=== PATIENT | female | born 1950 | race Caucasian/White ===

== ENCOUNTER 2017-02-08 08:47 | Inpatient (IN) | payer BC, OTHER ==
[2017-01-22 14:45] VITALS: Ht 160 cm; Wt 86.8 kg
--- NOTE | 2017-01-22 15:08 | PAT Medication Instructions ---
Service Date Jan 22, 2017. Current Home Medication List Aspirin (Aspirin Ec), 81 MG PO QAM Calcium (Calcium), 1 TAB PO QPM Carboxymethylcellulose-Glyceri (Refresh Optive Advanced S), 1 DOSE OPB QID Carvedilol (Coreg), 12.5 MG PO BID Losartan Potassium (Losartan Potassium), 1 TAB PO QAM Magnesium Oxide (Magnesium), 250 MG PO HS Multiple Vitamins W/ Minerals (One Daily For Women), 1 TAB PO QAM Medication Instructions For Your Scheduled Surgery - Check with surgeon for instructions: Aspirin (Aspirin Ec), 81 MG PO QAM - Hold the following medications the morning of surgery: Losartan Potassium (Losartan Potassium), 1 TAB PO QAM Multiple Vitamins W/ Minerals (One Daily For Women), 1 TAB PO QAM - Take the following medications the morning of surgery with a sip of water: Carvedilol (Coreg), 12.5 MG PO BID Carboxymethylcellulose-Glyceri (Refresh Optive Advanced S), 1 DOSE OPB QID - Take the following medications as scheduled the night before surgery: Magnesium Oxide (Magnesium), 250 MG PO HS Carvedilol (Coreg), 12.5 MG PO BID Calcium (Calcium), 1 TAB PO QPM Carboxymethylcellulose-Glyceri (Refresh Optive Advanced S), 1 DOSE OPB QID If you have any questions please call us at [phone] or [phone] or [phone]
--- NOTE | 2017-01-22 15:53 | DIAGNOSTIC IMAGING REPORT ---
CHEST PREADMISSION(PA/LAT) HISTORY: 66 years-old Female preadmission exam. Patient is asymptomatic. COMPARISON: Chest radiograph 11/23/2015 TECHNIQUE: Frontal and lateral views of the chest FINDINGS: The cardiomediastinal and hilar silhouettes are within normal limits. There is no pneumothorax or pleural effusion. There is a focal 11 x 6 mm opacity projected over the right upper lobe. Otherwise, lung ríos appear clear. There is fusion hardware of the cervical and lumbar spine. Upper abdominal structures are unremarkable. IMPRESSION: Focal 11 x 6 mm opacity in the apical region of the right upper lobe suggest pulmonary nodule, focal airspace disease or parenchymal scarring. This could be further evaluated with CT of the chest. The above report was generated using voice recognition software. It may contain grammatical, syntax or spelling errors. Electronically signed by: Juan Jose Kauffman M.D. 01/22/2017 3:52 PM Dictated Date/Time: 01/22/2017 3:50 PM
[2017-01-22 15:58] LABS: URINE APPEARANCE CLEAR (CLEAR); URINE BILIRUBIN NEG (NEG); URINE COLOR YELLOW; URINE NITRITE NEG (NEG); URINE SPECIFIC GRAVITY 1.022 (1.000-1.030); UROBILINOGEN NEG (NEG)
[2017-01-22 15:58] LABS: BASO % 0.4 %; BASO ABS # 0.03 K/uL (0-0.2); COMPLETE YES; HEMATOCRIT 37.2 % (37-47); IG% 0.3 %; LYMPH % 16.7 %; LYMPH ABS # 1.17 K/uL (1.2-3.4); MEAN CELL VOLUME 86.1 fL (80-100); MEAN CORPUSCULAR HEMOGLOBIN 28.7 pg (25-34); MEAN CORPUSCULAR HGB CONC 33.3 g/dl (32-36); MEAN PLATELET VOLUME 9.2 fL (7.4-10.4); MONO % 6.4 %; NEUT % 70.2 %; PLATELET COUNT 254 K/uL (130-400); RED BLOOD COUNT 4.32 M/uL (4.2-5.4); WHITE BLOOD COUNT 6.99 K/uL (4.8-10.8)
[2017-01-22 16:03] LABS: MANUAL MICROSCOPIC REQUIRED? NO; REVIEW REQ? NO
[2017-01-22 16:05] LABS: BUN/CREATININE RATIO 19.3 (10-20); CALCIUM 9.3 mg/dl (8.5-10.1); CREATININE 0.76 mg/dl (0.60-1.20); POTASSIUM 4.4 mmol/L (3.5-5.1)
[2017-01-22 16:09] LABS: PROTHROMBIN TIME (PATIENT) 10.4 SECONDS (9.0-12.0)
[2017-01-23 05:48] LABS: ESTIMATED AVERAGE GLUCOSE 114 mg/dl; HA1C FLAG Normal (Normal)
--- NOTE | 2017-02-07 15:43 | HISTORY & PHYSICAL EXAMINATION ---
DATE OF ADMISSION: 02/08/2017 CHIEF COMPLAINT: Right knee pain. HISTORY OF PRESENT ILLNESS: The patient is a 66-year-old female with known osteoarthritis about her right knee. She had a previous corticosteroid injection with minimal relief. She takes Advil p.r.n. She continues to have pain and disability with activities of daily living and now desires to proceed with right total knee arthroplasty. PAST MEDICAL HISTORY: Hypertension, osteoarthritis, and obesity. PAST SURGICAL HISTORY: Low back surgery, neck surgery, hip replacement, hysterectomy, and shoulder surgery. MEDICATIONS: Losartan 50 mg daily, Coreg 12.5 mg 2 times daily, magnesium daily, aspirin 81 mg daily, calcium plus D daily, and multivitamin daily. ALLERGIES: LATEX, WHICH CAUSES A RASH. SOCIAL HISTORY AND REVIEW OF SYSTEMS: Noncontributory. PHYSICAL EXAMINATION: GENERAL: Well-nourished and well-developed elderly obese female, who appears her stated age. HEENT: Normocephalic and atraumatic. Extraocular movements intact. Oropharynx is pink and moist. NECK: Supple without adenopathy. LUNGS: Clear to auscultation bilaterally. HEART: Regular rate and rhythm. ABDOMEN: Soft, nontender, nondistended, and obese. EXTREMITIES: The upper extremities are within normal limits. The right knee has a varus alignment. Her range of motion is from 0-110 degrees. She has mild crepitus with range of motion. X-RAYS: X-rays were reviewed. She has a varus aligned knee. She has [id number] arthritis of the medial compartment with complete loss of the joint space. She has medial osteophytes. She has moderate degenerative change about the patellofemoral joint with osteophytes as well. ASSESSMENT: Right knee degenerative joint disease. PLAN: Risks versus benefits were discussed. Consent was obtained. The patient's primary care physician is Dr. Jac Kim from [facility]. We will proceed with right total knee arthroplasty upon preop workup and medical clearance.
[~2017-02-08] VITALS: Ht 160 cm; Wt 86.8 kg
[2017-02-08] MEDS: TRANEXAMIC ACID INJ 1,000 MG in SODIUM CHLORIDE 0.9% 100ML 100 ML IV SCH ×2 (06:30→11:22)
--- NOTE | 2017-02-08 08:21 | History & Physical Bridge Note ---
H&P Re-Evaluation Bridge Note: I have examined the patient, reviewed the History & Physical and in the interval since the performance of the History & Physical I have noted the following changes of clinical significance: No changes noted
[~2017-02-08 08:47] MED LIST: ACETAMINOPHEN 500 MG TAB PO SCH; ASPI81TA28 PO; BUPIVACAINE 0.5 % 5 MG/1 ML PF 10ML VIAL ONE; BUPIVACAINE/EPINEPHRINE 0.25% 10 ML VIAL ONE; CALC600T37 PO; CARV12.5 PO; CEFAZOLIN 2000 MG/60 ML D5W 60 ML IV SCH; CZR50 PO; CeleBREX 200 MG CAP PO SCH; DEXAMETHASONE 4 MG TAB PO SCH; DEXAMETHASONE SOD INJ 4 MG/ML VIAL ONE; FAMOTIDINE 20 MG TAB PO SCH; GABAPENTIN 300 MG CAP PO SCH; LACTATED RINGER'S 1000ML 1,000 ML IV SCH; LACTATED RINGER'S 1000ML 500 ML IV ONE; LACTATED RINGER'S 1000ML IV SCH; MAGN1CAP4 PO; METOCLOPRAMIDE HCL 10 MG TAB PO SCH; MULT1TAB22 PO; ROPIVACAINE 5MG/ML 30 ML 150 MG, BUPIVACAINE/EPINEPHR 0.5% MPF 30 ML, KETOROLAC TROMETH... INFIL SCH; [UNRECOGNIZED DRUG - CODE] OPB
[2017-02-08] MEDS ORDERED: MIDAZOLAM HCL 1 MG/ML 2ML VIAL ONE ×2 (09:42)
[2017-02-08] MEDS ORDERED: FENTANYL CITRATE INJ 50 MCG/1 ML 2 ML VIAL ONE (09:42)
[2017-02-08 09:55] VITALS: BP 167/77; PULSE 64; TEMP 36.1; O2SAT 96
[2017-02-08] MEDS ORDERED: POVIDONE-IODINE OP SOLN 30 ML BTL ONE (11:18)
[2017-02-08] MEDS ORDERED: ORTHO JOINT ANESTHETIC ONE (11:18)
[2017-02-08] MEDS ORDERED: BACITRACIN 50000 UNIT VIAL ONE (11:18)
[2017-02-08] MEDS ORDERED: LIDOCAINE HCL 2% 2 ML VIAL (20MG/ML) ONE (12:13)
[2017-02-08] MEDS ORDERED: PROPOFOL IV EMULSION 10 MG/ML 20 ML VIAL IV ONE (12:13)
[2017-02-08] MEDS ORDERED: PROMETHAZINE HCL INJ 6.25 MG in SODIUM CHLORIDE 0.9% 50ML 50 ML IV PRN (13:30)
[2017-02-08] MEDS ORDERED: FENTANYL CITRATE INJ 50 MCG/1 ML 2 ML VIAL IV PRN (13:30)
[2017-02-08] MEDS ORDERED: ATROPINE SULFATE 0.1 MG/ML 5ML SYR IV PRN (13:30)
[2017-02-08] MEDS ORDERED: ONDANSETRON INJ 2 MG/ML 2 ML VIAL IV PRN ×2 (13:30→13:45)
[2017-02-08] MEDS ORDERED: EpHEDrine SULFATE INJ 50 MG/ML AMP IV PRN (13:30)
--- NOTE | 2017-02-08 13:31 | [facility] Post Operative Brief Note ---
Immediate Operative Summary Operative Date Feb 08, 2017. Pre-Operative Diagnosis Right Knee Degenerative Joint Disease Post-Operative Diagnosis Right Knee Degenerative Joint Disease Procedure(s) Performed Right Total Knee Arthroplasty Surgeon Dr. Simone Tavera Automotive Heavy Mechanic Surgeon(s) Deandre Thomas PA-C Estimated Blood Loss 10ml Findings Severe OA with mcl laxity Specimens A. Right Knee Bone and Tissue Complication(s) None Disposition Recovery Room / PACU
[2017-02-08] MEDS ORDERED: MAGNESIUM HYDROXIDE SUSP 30 ML UDC PO PRN (13:45)
[2017-02-08] MEDS ORDERED: ZOLPIDEM TARTRATE 5 MG TAB PO PRN (13:45)
[2017-02-08] MEDS ORDERED: ALUMINUM/MAGNESIUM/SIMETH (MAALOX MAX) 30 ML UDC PO PRN (13:45)
[2017-02-08] MEDS ORDERED: MoRPHine SULFATE 2 MG/ML CARP IV PRN (13:45)
[2017-02-08] MEDS ORDERED: BISACODYL 10 MG SUPP PR PRN (13:45)
[2017-02-08] MEDS ORDERED: SOD PHOSPHATE/SOD BIPHOSPHATE ENEMA 132 ML BTL PR PRN (13:45)
[2017-02-08] MEDS ORDERED: METOCLOPRAMIDE HCL INJ 5 MG/ML 2 ML VIAL IV PRN (13:45)
--- NOTE | 2017-02-08 13:46 | OPERATIVE REPORT ---
DATE OF OPERATION: 02/08/2017 PREOPERATIVE DIAGNOSIS: Osteoarthritis right knee. POSTOPERATIVE DIAGNOSIS: Osteoarthritis right knee. PROCEDURE: Right total knee arthroplasty. SURGEON: Dr. Tavera. TRADE MANAGER: Deandre Thomas PA-C ANESTHESIA: Spinal COMPLICATIONS: None. OPERATION AND FINDINGS: Following induction of spinal anesthesia, the patient's right leg was prepped and draped in the usual sterile manner. Limb was exsanguinated with an Esmarch bandage and tourniquet was inflated to 350 mmHg. A longitudinal incision was made anteriorly. Subcutaneous tissue was sharply dissected.? Electrocautery was used for hemostasis. Prepatellar bursa was incised and median parapatellar incision was performed. Patella was everted and the knee was flexed. Fat pad was removed to aid in visualization and the anterior and posterior cruciate ligaments were removed. The medial face of the tibia was cleared of soft tissue first with a Bovie and a Truong elevator. This tissue was retracted posteriorly using a blunt Hohmann. A Valles retractor was used to expose the synovium above on the anterior aspect of the femur and this was removed down to bone. The PSI guide was placed on the distal femur and two pins were placed anteriorly and kept in position and two additional pins were placed distally and removed. The distal femoral cutting block was placed in position and the distal femoral cut was used in the +0 setting. Next, the cutting block was removed and the femoral size 4 block was placed in the distal end of the femur. Care was taken to ensure appropriate external rotation and feeler gauge was used to ensure no notching would occur. The femoral block was centered on the distal femur and in the medial and lateral direction and was fixed using two bone screws. The gold pins were then removed. ?The oscillating saw was used to create the bone cuts and the distal femoral cutting block was removed and the reciprocating saw was used to further trim the femoral cuts as well as a deep in the area for the trochlear groove. Next, posterior condyle remnants were removed. Following this, a meniscal clamp and knife were utilized to remove the anterior portion of both medial and lateral meniscus. ?The proximal tibia PSI guide was placed into position and the proximal tibial cutting guide was screwed into position. The extra medullary alignment guide was utilized to ensure appropriate alignment.? The proximal tibia was cut and the proximal tibial cutting block was removed and this bone fragment was removed. The appropriate guide was used to perform the notch cut on the distal femur and a lamina garage laborer and a cochlear knife were utilized to finish both medial and lateral meniscectomies to remove any remnants of the posterior or anterior cruciate ligaments. Following this, the distal femoral component was impacted into position and blunt Carlyle was used to sublux the tibia anteriorly. The proximal tibia was sized and a tibial size 3 tibial tray was chosen as the size to be used. This was put into position and appropriate external rotation and a double check with extramedullary alignment guide was performed.? The canal for the tibial stem was prepared first with a 17 mm drill and then the punch and a mallet and the trial tibial poly was placed. A patella size 36 was chosen the size to be used. It was brought to extension and the patella was prepared with the patellar reamer. A tibial poly 16 stabilized component was chosen the size to be used. ?The trial component was placed and knee was taken through a full range of motion and there was found to be no lateral subluxation of the tibia. No lateral release was required. The trials were all removed. The final components were obtained and assembled. Cement was mixed. The knee was thoroughly irrigated and the ortho mix was injected about the knee joint. ?The final components were cemented into position. ?After thoroughly suctioning and drying the bone ends, all excess cement was removed. ?The knee was held in extension while the cement hardened. ?The wound was irrigated and closed over a Hemovac drain. #1 Vicryl was used to close the extensor mechanism. ?Subcutaneous tissues closed using 0 Dexon. Skin was closed with ginger. Sterile dressing of Adaptic, 4 x 4's, sterile Webril, and Darnell was applied. ?The patient tolerated the procedure well. Due to the complex nature of the procedure, the entire surgery was performed with the operational assistance of Deandre Thomas PA-C. The perinatal breastfeeding assistant, under direct supervision, was involved in the actual performance of all aspects of the surgical procedure including hemostasis, tissue retraction and incision, instrument management, patient positioning, and wound closure. ADDENDUM: The patient's medial collateral ligament was largely incompetent and so a stabilized tibial poly was placed with an extended tibial stem and additional pegs on the femur. I attest to the content of the Intraoperative Record and any orders documented therein. Any exception s are noted below.
--- NOTE | 2017-02-08 14:14 | DIAGNOSTIC IMAGING REPORT ---
RIGHT KNEE 1 OR 2 VIEWS ROUTINE HISTORY: 66 years-old Female status post right knee arthroplasty COMPARISON: None available TECHNIQUE: Portable AP and crosstable lateral views of the right knee FINDINGS: AP projection is slightly rotated. There is been recent total knee arthroplasty with patellar resurfacing. Hardware is in satisfactory alignment without evidence of periprosthetic fracture. Midline skin ginger are noted. There is expected postsurgical swelling and deep tissue air about the knee with surgical drain in place. No retained radiopaque foreign body identified. IMPRESSION: Status post right knee total joint arthroplasty and patellar resurfacing without complication identified. The above report was generated using voice recognition software. It may contain grammatical, syntax or spelling errors. Electronically signed by: Juan Jose Kauffman M.D. 02/08/2017 2:13 PM Dictated Date/Time: 02/08/2017 2:11 PM
[2017-02-08] MEDS ORDERED: MoRPHine SULFATE 10 MG/ML CARP/VIAL IV PRN (14:15)
--- NOTE | 2017-02-08 14:55 | Anesthesiology Progress Note ---
Anesthesia Post Op Note Date & Time Feb 08, 2017 at 14:54 Vital Signs Pain Intensity: 0 Vital Signs Past 12 Hours Date Time Temp Pulse Resp B/P (MAP) Pulse Ox O2 Delivery O2 Flow Rate FiO2 02/08/17 14:50 60 16 143/61 98 Nasal Cannula 2 02/08/17 14:40 37.4 62 14 126/63 98 Nasal Cannula 2 02/08/17 14:30 59 14 138/69 98 Nasal Cannula 2 02/08/17 14:20 71 14 145/67 98 Nasal Cannula 2 02/08/17 14:10 56 16 143/81 98 Nasal Cannula 2 02/08/17 14:00 56 14 143/58 100 Mask 10 02/08/17 13:56 37.3 64 12 145/69 100 Mask 10 02/08/17 09:55 36.1 64 18 167/77 96 Room Air Notes Mental Status: alert / awake / arousable, participated in evaluation Pt Amnestic to Procedure: Yes Nausea / Vomiting: adequately controlled Pain: adequately controlled Airway Patency, RR, SpO2: stable & adequate BP & HR: stable & adequate Hydration State: stable & adequate Neuraxial Anesthesia: was administered, sensory block is resolving Anesthetic Complications: no major complications apparent
[2017-02-08 15:40] VITALS: BP 132/76; PULSE 65; TEMP 36.9; O2SAT 98
[2017-02-08 16:10] VITALS: BP 154/82; PULSE 60; TEMP 36.5; O2SAT 98
[2017-02-08] MEDS: D5W AND 1/2NSS + 20MEQ KCL 1,000 ML IV SCH (16:26)
[2017-02-08 16:40] VITALS: BP 112/65; PULSE 62; TEMP 36.9; O2SAT 99
[2017-02-08] MEDS: KETOROLAC TROMETHAMINE 30 MG/ML VIAL IV. SCH ×2 (17:29→23:44)
[2017-02-08] MEDS: FERROUS GLUCONATE 324 MG TAB PO SCH (17:29)
[2017-02-08 18:47] VITALS: BP 147/80; PULSE 63; TEMP 36.6; O2SAT 98
[2017-02-08] MEDS ORDERED: TRANEXAMIC ACID INJ 1,000 MG in SODIUM CHLORIDE 0.9% 100ML 100 ML IV SCH (20:00)
[2017-02-08] MEDS: CEFAZOLIN IV 2,000 MG in DEXTROSE 5% 50ML 50 ML IV SCH (20:39)
[2017-02-08] MEDS: DOCUSATE SODIUM 100 MG CAP PO SCH (20:43)
[2017-02-08] MEDS: ASPIRIN 325 MG ECTAB PO SCH (20:43)
[2017-02-08] MEDS: SENNA 8.6 MG TAB PO SCH (20:43)
[2017-02-08 22:57] VITALS: BP 144/70; PULSE 63; TEMP 36.7; O2SAT 96
[2017-02-08] MEDS: MoRPHine SULFATE 4 MG/ML 1 ML CARP\\VIAL IV PRN (23:43)
[2017-02-09 02:28] VITALS: BP 148/63; PULSE 61; TEMP 36.6; O2SAT 95
[2017-02-09] MEDS: D5W AND 1/2NSS + 20MEQ KCL 1,000 ML IV SCH ×2 (03:02→11:53)
[2017-02-09] MEDS: CEFAZOLIN IV 2,000 MG in DEXTROSE 5% 50ML 50 ML IV SCH (03:54)
[2017-02-09] MEDS: OXYCODONE HCL IR 5 MG TAB (IMMEDIATE RELEASE) PO PRN ×4 (04:01→22:12)
[2017-02-09] MEDS: KETOROLAC TROMETHAMINE 30 MG/ML VIAL IV. SCH ×2 (05:51→11:54)
[2017-02-09 05:52] LABS: HEMATOCRIT 34.6 % (37-47); MEAN CELL VOLUME 86.1 fL (80-100); MEAN CORPUSCULAR HEMOGLOBIN 28.4 pg (25-34); MEAN CORPUSCULAR HGB CONC 32.9 g/dl (32-36); MEAN PLATELET VOLUME 9.6 fL (7.4-10.4); PLATELET COUNT 193 K/uL (130-400); RED BLOOD COUNT 4.02 M/uL (4.2-5.4)
[2017-02-09 08:00] VITALS: BP 148/82; PULSE 58; TEMP 36.6; O2SAT 97
--- NOTE | 2017-02-09 08:07 | Anesthesiology Progress Note ---
Anesthesia Post Op Note Date & Time Feb 09, 2017 at 08:07 Vital Signs Vital Signs Past 12 Hours Date Time Temp Pulse Resp B/P (MAP) Pulse Ox O2 Delivery O2 Flow Rate FiO2 02/09/17 02:28 36.6 61 16 148/63 (91) 95 Room Air 02/08/17 23:39 Room Air 02/08/17 22:57 36.7 63 16 144/70 (94) 96 Room Air Notes Mental Status: alert / awake / arousable, participated in evaluation Pt Amnestic to Procedure: Yes Nausea / Vomiting: adequately controlled Pain: adequately controlled Airway Patency, RR, SpO2: stable & adequate BP & HR: stable & adequate Hydration State: stable & adequate Neuraxial Anesthesia: was administered, sensory block resolved Anesthetic Complications: no major complications apparent
--- NOTE | 2017-02-09 08:16 | Orthopedic Progress Note ---
Orthopedic Progress Note Date of Service Feb 09, 2017. Subjective Post OP Day: 1 Reports: feeling well, Denies: chest pain, SOB, nausea / vomiting, light headedness, calf pain Objective calves soft nontender, N/V intact, hip located, dressing C/D/I, A&O x3, toes mobile, hemovac drainage (230/110CC PER SHFT) Date Time Temp Pulse Resp B/P (MAP) Pulse Ox O2 Delivery O2 Flow Rate FiO2 02/09/17 08:00 36.6 58 16 148/82 (104) 97 Room Air 02/09/17 02:28 36.6 61 16 148/63 (91) 95 Room Air 02/08/17 23:39 Room Air 02/08/17 22:57 36.7 63 16 144/70 (94) 96 Room Air 02/08/17 18:47 36.6 63 18 147/80 (102) 98 Room Air 02/08/17 16:40 36.9 62 18 112/65 (81) 99 Nasal Cannula 2.0 02/08/17 16:10 36.5 60 16 154/82 (106) 98 Nasal Cannula 2.0 02/08/17 15:40 Nasal Cannula 2.0 02/08/17 15:40 Nasal Cannula 2.0 02/08/17 15:40 36.9 65 16 132/76 (94) 98 Nasal Cannula 2.0 02/08/17 15:30 37.4 62 14 130/60 96 Nasal Cannula 2 02/08/17 15:20 60 18 139/57 96 Nasal Cannula 2 02/08/17 15:10 37.3 68 18 123/66 98 Nasal Cannula 2 02/08/17 15:00 62 14 132/64 97 Nasal Cannula 2 02/08/17 14:50 60 16 143/61 98 Nasal Cannula 2 02/08/17 14:40 37.4 62 14 126/63 98 Nasal Cannula 2 02/08/17 14:30 59 14 138/69 98 Nasal Cannula 2 02/08/17 14:20 71 14 145/67 98 Nasal Cannula 2 02/08/17 14:10 56 16 143/81 98 Nasal Cannula 2 02/08/17 14:00 56 14 143/58 100 Mask 10 02/08/17 13:56 37.3 64 12 145/69 100 Mask 10 02/08/17 09:55 36.1 64 18 167/77 96 Room Air Laboratory Results 24 Hours: Test 02/09/17 05:18 Hematocrit 34.6 % Hemoglobin 11.4 g/dL Assessment & Plan Assessment: POD#1 SP RIGHT TKA Inhouse Planning Pain Management: PO Tylenol, Oxy IR DVT Prophylaxis: TEDs, SCDs, ASA Discharge Planning Discharge Planning: snf facility (REQUESTING REFERRAL TO [facility]. WILL REQUIRE 3 DAY STAY.)
[2017-02-09] MEDS: DOCUSATE SODIUM 100 MG CAP PO SCH ×2 (08:34→21:09)
[2017-02-09] MEDS: FERROUS GLUCONATE 324 MG TAB PO SCH ×3 (08:34→17:09)
[2017-02-09] MEDS: ASPIRIN 325 MG ECTAB PO SCH ×2 (08:34→21:09)
[2017-02-09] MEDS: MULTIVITAMIN TAB PO SCH (08:34)
[2017-02-09] MEDS: PANTOprazole SOD 40 MG TAB PO SCH (08:35)
[2017-02-09 08:56] VITALS: O2SAT 97
[2017-02-09 11:34] VITALS: BP 140/72; PULSE 61; TEMP 36.7; O2SAT 100
[2017-02-09 13:09] LABS: BUN/CREATININE RATIO 26.6 (10-20); CALCIUM 8.7 mg/dl (8.5-10.1); CREATININE 0.74 mg/dl (0.60-1.20); POTASSIUM 4.2 mmol/L (3.5-5.1)
[2017-02-09 15:59] VITALS: BP 136/66; PULSE 64; TEMP 37.3; O2SAT 98
[2017-02-09] MEDS: SENNA 8.6 MG TAB PO SCH (21:10)
[2017-02-09 23:24] VITALS: BP 166/74; PULSE 60; TEMP 36.8; O2SAT 98
[2017-02-09] MEDS: MoRPHine SULFATE 4 MG/ML 1 ML CARP\\VIAL IV PRN (23:39)
[2017-02-10] MEDS: OXYCODONE HCL IR 5 MG TAB (IMMEDIATE RELEASE) PO PRN ×3 (02:27→12:22)
[2017-02-10 05:31] VITALS: BP 149/70
[2017-02-10] MEDS: MoRPHine SULFATE 4 MG/ML 1 ML CARP\\VIAL IV PRN (05:37)
--- NOTE | 2017-02-10 06:19 | Discharge Instructions ---
Discharge Instructions Date of Service Feb 10, 2017. Admission Reason for Admission: Right Knee Osteoarthritis Discharge Discharge Diagnosis / Problem: Right total knee replacement Discharge Goals Goal(s): Decrease discomfort, Improve function, Increase independence Activity Recommendations Activity Level: Up [place] Therapies: Physical Therapy, Weight Bearing Status Weightbearing Status: Right weightbearing (as tolerated) . Additional Information Patient informed of condition: Yes Advance Directives: No DNR: No Level of Care: Skilled Communicable Disease: No Prognosis: Stable Adame Catheter: No Instructions / Follow-Up Instructions / Follow-Up ACTIVITY RECOMMENDATIONS: SELF CARE INSTRUCTIONS AFTER TOTAL KNEE REPLACEMENT A. You may need to continue a physical therapy program after discharge from the hospital. There are several options available to you. Your doctor will assist you in selecting the best one for you. 1. An out-patient facility 2 to 3 times a week for therapy or home therapy. 2. Continue working on all exercises taught to you in the hospital. Your goals should be to increase bending of your knee to 90 degrees and beyond and to fully straighten your knee. B. You may progress at your own pace from walking with a walker or crutches to a cane; then to no assistive devices. C. Make walking a part of your daily routine. Be up as much as comfortable with rest periods throughout the day. Rest with leg elevation is very important. Use the ice wrap frequently for the first 3-4 weeks. D. There are no restrictions on activities. You may ride in a car, shop, participate in parliamentary librarian and all social activities. E. Wear the long elastic stockings (FILI hose) 20 hours a day for 2 weeks after surgery. They can be removed several times a day for laundering and for a bath. F. You may shower, no tub baths until cleared by your doctor. SPECIAL CARE INSTRUCTIONS: VERY IMPORTANT TO READ AND REVIEW A. There are a few signs you need to watch for after you are home. Call [facility] if you notice any of the followin. Increased severe knee pain. Some pain is expected especially when you exercise. 2. Increased swelling in your leg or knee; pain or swelling of the calf muscle in either lower leg. 3. Any fluid drainage from the incision. 4. Shortness of breath or chest pain. B. Please call [facility] at if you have any concerns or questions about your operation or recovery. The doctor or his nurse will return your call promptly. C. You must take antibiotics before dental work, bladder, bowel or other surgery. Your doctor will provide you with a permanent care to carry describing this precaution. IMPORTANT: * REMEMBER TO TAKE ASPIRIN, 81 MG, TWICE DAILY FOR 4 WEEKS UNLESS OTHERWISE DIRECTED. THIS IS YOUR BLOOD THINNER. * HIGH RISK PATIENTS MAY BE PRESCRIBED A STRONGER BLOOD THINNER. THIS WILL BE PROVIDED AT DISCHARGE. * CALL IF INCREASED PAIN, REDNESS, DRAINAGE OR FEVER GREATER THAT 101. * WEAR FILI HOSE 20 HOURS PER DAY FOR 2 WEEKS. * YOU MAY HAVE A LARGE BAND-AID LIKE DRESSING (SILVERON). THIS WILL REMAIN ON YOUR INCISION FOR 7 DAYS, THEN CAN BE REMOVED. IF INCISION IS LEAKING THROUGH DRESSING, CALL THE OFFICE . FOLLOW UP VISIT: If appointment is not already scheduled: Please call [facility] to make a follow-up appointment for 2 weeks after your surgery at . Current Hospital Diet Patient's current hospital diet: Regular Diet Discharge Diet Recommended Diet: Regular Diet Procedures Procedures Performed: Right Total Knee Arthroplasty Pending Studies Studies pending at discharge: no Laboratory Results Hemoglobin A1c Test 01/22/17 15:15 Range/Units Estimated Average Glucose 114 mg/dl Hemoglobin A1c 5.6 4.5-5.6 % Medical Emergencies . Who to Call and When: Medical Emergencies: If at any time you feel your situation is an emergency, please call 911 immediately. . Non-Emergent Contact Non-Emergency issues call your: Primary Care Provider . . "Provider Documentation" section prepared by Shaquille Alfaro. . Core Measure Problem Core Measures: None [place] Drug Monitoring Program Search Results: patient reviewed within database, no issues identified
[2017-02-10] MEDS ORDERED: OXYSR/10 PO (06:22)
[2017-02-10] MEDS ORDERED: RXC5 PO (06:22)
[2017-02-10] MEDS ORDERED: ONDA8TAB6 PO (06:22)
[2017-02-10] MEDS ORDERED: ASPEC325 PO (06:22)
[2017-02-10] MEDS ORDERED: CLC100 PO (06:22)
[2017-02-10 06:24] VITALS: BP 154/74; PULSE 57; TEMP 36.6; O2SAT 96
--- NOTE | 2017-02-10 06:26 | Orthopedic Progress Note ---
Orthopedic Progress Note Date of Service Feb 10, 2017. Subjective Post OP Day: 2 Reports: feeling well, pain controlled w PO medications, Denies: complaints, chest pain, SOB, nausea / vomiting, light headedness, calf pain Objective calves soft nontender, N/V intact, capillary refill less than 2 sec., incision C /D/I, A&O x3, toes mobile Date Time Temp Pulse Resp B/P (MAP) Pulse Ox O2 Delivery O2 Flow Rate FiO2 02/10/17 05:31 149/70 (96) 02/09/17 23:45 Room Air 02/09/17 23:24 36.8 60 18 166/74 (104) 98 Room Air 02/09/17 15:59 37.3 64 18 136/66 (89) 98 Room Air 02/09/17 15:50 Room Air 02/09/17 11:34 36.7 61 20 140/72 (94) 100 Room Air 02/09/17 08:56 97 Room Air 02/09/17 08:30 Room Air 02/09/17 08:00 36.6 58 16 148/82 (104) 97 Room Air Assessment & Plan Assessment: POD#2 SP RIGHT TKA Plan: ASA bid plan for transfer to [facility] later today after PT Discharge Planning Discharge Planning: snf facility DVT Prophylaxis: TEDs, SCDs, ASA Therapy: Physical Therapy
[2017-02-10] MEDS: PANTOprazole SOD 40 MG TAB PO SCH (07:57)
[2017-02-10] MEDS: MULTIVITAMIN TAB PO SCH (07:57)
[2017-02-10] MEDS: FERROUS GLUCONATE 324 MG TAB PO SCH (07:58)
[2017-02-10] MEDS: DOCUSATE SODIUM 100 MG CAP PO SCH (08:42)
[2017-02-10] MEDS: ASPIRIN 325 MG ECTAB PO SCH (08:42)
[2017-02-10 10:10] VITALS: BP 154/74; PULSE 57; TEMP 36.6; O2SAT 96
--- NOTE | 2017-02-15 15:42 | DISCHARGE SUMMARY ---
DISCHARGE DIAGNOSIS: Degenerative joint disease, right knee. SECONDARY DIAGNOSES: Hypertension, osteoarthritis, obesity. CONSULTS: None. COMPLICATIONS: None. PROCEDURES: Right total knee arthroplasty performed by Dr. Tavera on 02/08/2017. BRIEF HISTORY: As dictated in the history and physical. HOSPITAL SUMMARY: The patient was admitted on the above-noted date and had the above-noted surgery performed which she tolerated well. On the first postoperative day, she was feeling well and had no complaints. Calves were soft, nontender, neurovascularly intact. She was alert and oriented x3 and dressings clean, dry and intact. Toes were mobile. Vital signs were stable. She was afebrile. Hemoglobin was 11.4 and she was started on physical therapy protocol and continued on DVT prophylaxis and pain management. By her second postoperative day, she continued to feel well, pain was controlled. Calves were soft and nontender. Incision was benign. Toes were mobile and she was progressing with her physical therapy and it was felt that she could be transferred to [facility] for further physical therapy and care on 02/10/2017. For further review, please see chart. LAB AND X-RAY DATA: As per chart. DISCHARGE INSTRUCTIONS: The patient was discharged to [facility] on 02/10/2017. DIET: Regular. ACTIVITY: Weightbearing as tolerated right lower extremity. Follow TK instruction sheets and special care instructions as noted. Follow up with Dr. Tavera in 2 weeks. The patient to call for appointment if one has not been made for you. DISCHARGE MEDICATIONS: Aspirin 325 mg p.o. b.i.d., Colace 100 mg p.o. b.i.d., Zofran 8 mg p.o. q. 8 hours p.r.n., oxycodone 5-10 mg p.o. q. 8 hours p.r.n., OxyContin 10 mg p.o. q. 12 hours. Continue calcium 1 tab p.o. q. p.m. Refresh advanced eyedrops 1 dose OPB q.i.d., carvedilol 12.5 mg p.o. b.i.d., losartan 50 mg p.o. q. a.m., mag ox 500 mg half tablet p.o. at bedtime, multivitamin 1 tab p.o. q. a.m. and stop taking 81 mg tablet of aspirin.
== END 2017-02-10 13:50 | DRG 470 ==
LOC: C.ACU 08:47 → C.3E 09:44 → ENRESERV 15:16
PROC: 0SRC0J9 Replacement of Right Knee Joint with Synthetic Substitute, Cemented, Open Approach (ICD-10-PCS; principal; 2017-02-08 11:00)
DX: M17.11 Unilateral primary osteoarthritis, right knee (principal); I10 Essential (primary) hypertension; E66.9 Obesity, unspecified; Z68.33 Body mass index [BMI] 33.0-33.9, adult; Z79.82 Long term (current) use of aspirin; Z79.899 Other long term (current) drug therapy; Z91.040 Latex allergy status; Z96.649 Presence of unspecified artificial hip joint; Z98.890 Other specified postprocedural states

== ENCOUNTER 2017-05-17 09:58 | Day surgery (SDC) | payer BC, OTHER ==
[2017-05-09 11:56] VITALS: BMI 32.0
[~2017-05-17] VITALS: Ht 160 cm; Wt 84.0 kg
--- NOTE | 2017-05-17 06:46 | History and Physical ---
History & Physical Date of Service May 17, 2017. History & Physical Reason for Visit: EBUS w/ENB right hilar spiculated nodule HPI: Patient is a 67 yo female presenting to [facility] for EBUS w/ENB of right hilar speculated lung nodule. The patient initially was evaluated by THALIA Neil in the office for concern of abnormal CT scan of the chest. The patient initially had a CXR completed in December which showed no significant abnormality. She then had a CT scan of the chest completed in January 2017 for history of lung nodule and reevaluation. The patient was then noted to have a 9 mm speculated parenchymal density of the right hilum. A 7 mm nodular area was also noted at the heart border. Repeat CT scan was completed on 2016 and noted stable partially calcified mediastinal and hilar lymphadenopathy, multifocal speculated masses of the upper lobe suggestive of sarcoidosis, but could not rule out malignancy, and cholelithiasis. This image was viewed. Active Problems: Abnormal lung findings, benign essential HTN, cervical spondylosis, congenital coloboma of optic disc, herpes zoster, and sciatica Social Hx: Never smoker Current Meds: Aspirin 81 mg daily Calcium 600-200mg tablet daily Celebrex 200 mg BID with food Coreg 12.5 mg BID with meals Cozaar 50 mg daily Magnesium 500 mg daily Multivitamin Allergies: Accupril Physical Exam: General: Patient is awake, alert, cooperative, and in no acute distress. Head: Normocephalic, Atraumatic. Neck: Normal ROM. Trachea midline. Respiratory: No respiratory distress. No accessory muscle use. Cardiovascular: Regular rate and rhythm. Neuro: Alert, Oriented x 3. CN II-XII grossly intact. Psych: Mood and affect are normal. Assessment and Plan: Spiculated upper lobe lung nodules, hilar and mediastinal lymphadenopathy Plan for EBUS w/ENB to evaluate lymphadenopathy and upper lobe nodules. Differential includes sarcoidosis, malignancy, etc.
[~2017-05-17 09:58] MED LIST changes: +ACET-1256 PO; -ACETAMINOPHEN 500 MG TAB PO SCH; +ATROPINE SULFATE 0.1 MG/ML 5ML SYR IV PRN; -BUPIVACAINE 0.5 % 5 MG/1 ML PF 10ML VIAL ONE; -BUPIVACAINE/EPINEPHRINE 0.25% 10 ML VIAL ONE; -CEFAZOLIN 2000 MG/60 ML D5W 60 ML IV SCH; +CYCL0.052 OP; -CeleBREX 200 MG CAP PO SCH; -DEXAMETHASONE 4 MG TAB PO SCH; -DEXAMETHASONE SOD INJ 4 MG/ML VIAL ONE; +EpHEDrine SULFATE INJ 50 MG/ML AMP IV PRN; -FAMOTIDINE 20 MG TAB PO SCH; +FENTANYL CITRATE INJ 50 MCG/1 ML 2 ML VIAL IV PRN; -GABAPENTIN 300 MG CAP PO SCH; +IBUP-103 PO; -LACTATED RINGER'S 1000ML 500 ML IV ONE; -LACTATED RINGER'S 1000ML IV SCH; -METOCLOPRAMIDE HCL 10 MG TAB PO SCH; +ONDANSETRON INJ 2 MG/ML 2 ML VIAL IV PRN; -ROPIVACAINE 5MG/ML 30 ML 150 MG, BUPIVACAINE/EPINEPHR 0.5% MPF 30 ML, KETOROLAC TROMETH... INFIL SCH
[2017-05-17 10:25] VITALS: BP 169/80; PULSE 67; TEMP 36.7; O2SAT 97; Ht 160 cm; Wt 84.0 kg
[2017-05-17] MEDS ORDERED: SUCCINYLCHOLINE CHLORIDE 20 MG/ML 10 ML VIAL IV ONE (10:26)
[2017-05-17] MEDS ORDERED: FENTANYL CITRATE INJ 50 MCG/1 ML 2 ML VIAL ONE (10:26)
[2017-05-17] MEDS ORDERED: ROCURONIUM BROMIDE 10 MG/ML 5 ML VIAL IV ONE (10:26)
[2017-05-17] MEDS ORDERED: DEXAMETHASONE SOD INJ 4 MG/ML VIAL ONE (10:26)
[2017-05-17] MEDS ORDERED: LIDOCAINE HCL 2% 2 ML VIAL (20MG/ML) ONE (10:26)
[2017-05-17] MEDS ORDERED: PROPOFOL IV EMULSION 10 MG/ML 20 ML VIAL IV ONE (10:26)
[2017-05-17] MEDS ORDERED: ONDANSETRON INJ 2 MG/ML 2 ML VIAL ONE (10:26)
[2017-05-17] MEDS ORDERED: MIDAZOLAM HCL 1 MG/ML 2ML VIAL ONE (10:26)
[2017-05-17] MEDS ORDERED: AMOX500C3 PO (10:37)
--- NOTE | 2017-05-17 11:01 | History & Physical Bridge Note ---
H&P Re-Evaluation Bridge Note: I have examined the patient, reviewed the History & Physical and in the interval since the performance of the History & Physical I have noted the following changes of clinical significance: At this time we will only proceed forward with a flexible and EBUS evaluation.
--- NOTE | 2017-05-17 13:12 | Bronchoscopy Procedure Note ---
Bronchoscopy Procedure Note Procedure: Flexible-Bronchoscopy, EBUS, FNA, BAL Consent: Obtained through the patient placed into the chart Pre-Procedural Dx: Mediastinal hilar adenopathy Post-Procedural Dx: Mediastinal hilar adenopathy with granulomatous changes Analgesia: GETA Sedation: GETA Procedure: The Olympus video bronchoscope and EBUS scope were used for this procedure Initially the flexible bronchoscope was used for evaluation of the airways. An LMA Size 5 was used for this procedure and properly positioned Vocal Cords: Anatomically WNL Sub-Glottis & Trachea: Anatomically WNL Rosa: Anatomically within normal limits Right bronchial tree: Right mainstem bronchus: Anatomically within normal limits Right upper lobe: Anatomically within normal limits Bronchus intermedius: Anatomically within normal limits Right middle lobe: Anatomically within normal limits Right lower lobe: Anatomically within normal limits Findings: No significant findings noted Left bronchial tree: Left mainstem bronchus: Anatomically within normal limits Left upper lobe: Anatomically within normal limits Lingula: Anatomically within normal limits Left lower lobe: Anatomically within normal limits Findings: No significant findings noted EBUS/TAYLER: FNA Zen Stations: 7: # of passes 5 10R: # of passes 3 10L: # of passes 3 BAL: RB2 EBL: None Complications: None Follow-up: PACU
--- NOTE | 2017-05-17 13:15 | Discharge Instructions ---
Discharge Instructions Date of Service May 17, 2017. Admission Reason for Admission: Pulmonary Nodule Discharge Discharge Diagnosis / Problem: mediastinal and hilar adenopathy with granulomatous changes Discharge Goals Goal(s): Diagnostic testing Activity Recommendations Activity Limitations: resume your previous activity . Instructions / Follow-Up Instructions / Follow-Up [facility] Current Hospital Diet Patient's current hospital diet: Discharge Diet Recommended Diet: Regular Diet Procedures Procedures Performed: Flexible bronchoscopy, endobronchial ultrasound, trans-tracheal/bronchial needle aspiration, bronchial lavage Pending Studies Studies pending at discharge: no Medical Emergencies . Who to Call and When: Medical Emergencies: If at any time you feel your situation is an emergency, please call 911 immediately. . Non-Emergent Contact Non-Emergency issues call your: [employer] . . "Provider Documentation" section prepared by José Muro. . VTE Core Measure Inpt VTE Proph given/why not?: Treatment not indicated
--- NOTE | 2017-05-17 13:52 | Anesthesiology Progress Note ---
Anesthesia Post Op Note Date & Time May 17, 2017 at 13:52 Vital Signs Pain Intensity: 1 Vital Signs Past 12 Hours Date Time Temp Pulse Resp B/P (MAP) Pulse Ox O2 Delivery O2 Flow Rate FiO2 05/17/17 13:50 36.4 68 13 166/90 92 Room Air 05/17/17 13:40 73 16 169/80 95 Room Air 05/17/17 13:30 69 14 166/87 100 Oxymask 10 05/17/17 13:20 62 11 161/87 100 Oxymask 10 05/17/17 13:12 36.0 62 13 168/84 100 Oxymask 10 05/17/17 10:25 36.7 67 18 169/80 (109) 97 Room Air Notes Mental Status: alert / awake / arousable, participated in evaluation Pt Amnestic to Procedure: Yes Nausea / Vomiting: adequately controlled Pain: adequately controlled Airway Patency, RR, SpO2: stable & adequate BP & HR: stable & adequate Hydration State: stable & adequate Anesthetic Complications: no major complications apparent
[2017-05-17 13:55] VITALS: BP 191/87; PULSE 66; TEMP 36.6; O2SAT 92
[2017-05-17 14:28] VITALS: BP 167/76; PULSE 64; O2SAT 95
[2017-05-17 14:55] VITALS: BP 170/79; PULSE 70; TEMP 36.6; O2SAT 93
== END 2017-05-17 15:05 | disposition home or self-care (01) ==
LOC: C.ACU 09:58
PROVIDERS: ATTEND Internal Medicine Critical Care Medicine
DX: J84.10 Pulmonary fibrosis, unspecified (principal); R59.0 Localized enlarged lymph nodes; R91.8 Other nonspecific abnormal finding of lung field; I10 Essential (primary) hypertension; Z79.899 Other long term (current) drug therapy